=== PATIENT | male | born 2005 | race Asian ===

== ENCOUNTER 2024-07-10 22:48 | Emergency (ER) | payer MEDICAID, SELFPAY ==
[2024-07-10 22:48] VITALS: BMI 24.3
--- NOTE | 2024-07-10 22:59 | XR_ITS ---
EXAMINATION: Ankle, right 3 views . Technique: Ankle AP, oblique, lateral 3 views Date and time of exam: July 10, 2024 1127 hrs. Indications: Twisting injury to the ankle today, ankle pain. Findings: Acute fractures distal fibular shaft without significant displacement No ankle dislocation Impression: Acute fractures distal fibular shaft
[2024-07-10 23:28] VITALS: BP 125/84; PULSE 77; RESP 20; TEMP 37.3; O2SAT 99
--- NOTE | 2024-07-10 23:38 | EDNOTE_ITS ---
Lower Extremity Injury RME/HPI General Chief Complaint: Ankle/Foot Injury Stated Complaint: TWISTED RT ANKLE Time Seen by Provider: 07/10/24 23:35 Arrival date/time: 07/10/24 22:48 19M with no significant PMH presents to ED with R ankle pain [place]. Limitations: no limitations Related Data Allergies Allergy/AdvReac Type Severity Reaction Status Date / Time No Known Allergies Allergy Mild Uncoded 10/31/08 19:59 Review of Systems Review of Systems Systems Reviewed: All systems reviewed, normal except as documented Constitutional Constitutional: Reports system reviewed and no additional complaints, except as documented, Denies fever(s) and Denies headache(s) ENT Ears, Nose, Mouth, and Throat: Denies disequilibrium and Denies headache(s) Cardiovascular Cardiovascular: Reports system reviewed and no additional complaints, except as documented, Denies chest pain and Denies dyspnea Respiratory Respiratory: Reports system reviewed and no additional complaints, except as documented, Denies cough and Denies dyspnea Gastrointestinal Gastrointestinal: Reports system reviewed and no additional complaints, except as documented, Denies abdominal pain, Denies nausea and Denies vomiting Musculoskeletal Musculoskeletal: Reports as per HPI and Reports arthralgias Neurologic Neurologic: Reports system reviewed and no additional complaints, except as documented, Denies confusion, Denies disequilibrium and Denies headache(s) Psychiatric Psychiatric: Denies confusion Past Medical History Social History SMOKING STATUS: Never smoker ED Exam General Limitations: Present no limitations General appearance: Present alert and in no apparent distress Head Head exam: Present atraumatic Eye Eye exam: Present normal appearance, PERRL and EOMI ENT ENT exam: Present normal exam, normal oropharynx and mucous membranes moist Neck Neck exam: Present normal inspection, full ROM and trachea midline Chest Chest inspection: Present normal inspection and symmetric chest wall rise Respiratory Respiratory exam: Present normal lung sounds bilaterally Cardiovascular Cardiovascular exam: Present regular rate, normal rhythm and normal heart sounds Abdominal Exam Abdominal exam: Present soft and normal bowel sounds Extremities Exam Extremities exam: Present full ROM Expanded Lower Extremity Exam Ankle exam: Present full ROM (R), tenderness and swelling Back Exam Back exam: Present normal inspection and full ROM Neurological Exam Neurological exam: Present alert, oriented X3 and CN II-XII intact Psychiatric Psychiatric exam: Present normal affect and normal mood Skin Skin exam: Present warm, dry, intact and normal color Course Quality Measures none Orders Category Date Time Status Crutches .NOW Care 07/10/24 23:35 Active Splint / Immobilizer STAT Care 07/10/24 23:35 Active XR ankle comp RT min 3V Stat Exams 07/10/24 22:59 Taken Vital Signs Vital signs: Vital Signs Temperature 99.2 F 07/10/24 23:28 Pulse Rate 77 07/10/24 23:28 Respiratory Rate 20 07/10/24 23:28 Blood Pressure 125/84 07/10/24 23:28 Pulse Oximetry (%) 99 07/10/24 23:28 Oxygen Delivery Method Room Air 07/10/24 23:28 O2 at 99% on RA and WNLs Extremity Injury, Lower MDM Narrative MDM Narrative:: 19M with no significant PMH presents to ED with R ankle pain after [place] it [place]. Physical exam reveals R ankle tenderness and swelling. ROM intact. Patient is afebrile, calm, and alert. XR reveals R fibular fx. Given splint, crutches, and ortho referral. Patient data External records reviewed:: None Clinical information provided by:: patient Social determinants that could affect healthcare access:: none Patient has the following chronic illnesses:: none How is presenting disease/condition affected by chronic disease/condition?: no chronic disease Evaluation data The following diagnostics were reviewed and interpreted by me:: radiology exam(s) Lab and/or radiology exams considered but not ordered:: ordered Interpretation Summary: above Medications / Prescriptions Medications or Prescriptions considered but not ordered:: not ordered Medication administrations:: n/a Consultations Consultation(s) initiated? (list below): No Diagnosis Extremity Injury, Lower Differential Diagnosis: ankle sprain and strain, acute internal derangement of knee, puncture wound of foot, fracture of toe and ankle fracture Most likely diagnosis given after review of the tests above:: ankle fx Admission Indicated Admission indicated?: not indicated Admission Request Was there a request for admission?: No Disposition Plan Disposition Plan: Discharge Discharge Attestation Discharge Attestation: The patient and all family members were given an opportunity to ask questions and understood the discharge instructions. Discharge instructions specifically effects, indications for sooner follow up or return to the emergency department, and the expected course of current diagnosis. Patient condition: Stable Discharge Plan Plan Patient Disposition: HOME (Self Care) Disposition Comment: Stable Prescriptions/Referrals Referrals: Federico Matamoros MD [Physician] - 07/12/24 3:00 pm Problem List Clinical Impression: Ankle fracture Patient/Caregiver Discharge Instructions Education Materials: ED Fracture, Lower Extremity Additional Instructions: Please follow-up with PCP within 24-48 hours and return immediately if symptoms worsen. Please go to scheduled ortho appointment with Dr. Matamoros on Friday at 3 PM. Print Language: Mosotho Stand Alone Forms: Patient Portal Info Letter PA/LEARNING DISABILITIES TEACHER Supervising Physician PA/LEARNING DISABILITIES TEACHER Supervising Physician: Dr. Peterson
== END 2024-07-11 00:10 | disposition home or self-care (01) ==
PROVIDERS: Emergency Provider Emergency Medicine; PCP Family Medicine
DX: S82.891A Other fracture of right lower leg, initial encounter for closed fracture (principal); X50.1XXA Overexertion from prolonged static or awkward postures, initial encounter
CPT/HCPCS: 29515; 73610; 99283